=== PATIENT | female | born 1945 | race Caucasian/White ===

== ENCOUNTER 2016-12-19 21:50 | Emergency (ER) | payer MEDICARE, OTHER ==
[~2016-12-19] VITALS: Ht 160 cm; Wt 77.3 kg
[2016-12-19 21:56] VITALS: BP 153/94; RESP 18; O2SAT 97
[2016-12-19] MEDS ORDERED: VITA400C64 PO (22:06)
[2016-12-19] MEDS ORDERED: ASPI-973 PO (22:06)
[2016-12-19] MEDS ORDERED: ESOM20CA28 PO (22:06)
--- NOTE | 2016-12-19 22:17 | ED.REPORT ---
HPI-Facial Injury Date of Service Dec 19, 2016 ED Provider: Dami Membreno MD A 71 year old female who takes one 81 mg aspirin and vitamin E supplements daily presents to the ED due to epistaxis. She has been experiencing intermittent nose bleeds for seven days but has been able to stop them. This episode began at 21:00 tonight and has continued since. The pt denies trauma, and states that she had been getting out of bed when the bleeding began. The blood was running down the back of her throat when the bleeding began, though this has stopped at this point. The pt has not used any nasal sprays to attempt to stop the bleeding. The pt's home was recently refinished and she is highly allergic to the dust. She suspects that her epistaxis may be related to this event. Nursing Notes Stated Complaint: NOSE BLEED Chief Complaint: ENT & Mouth Nursing Notes Reviewed: Yes Allergies: Coded Allergies: Penicillins (Verified Allergy, Severe, swelling, 12/19/16) Uncoded Allergies: CORTISOME (Allergy, Severe, swelling, 12/19/16) Scheduled Aspirin (Aspirin) 81 Mg Tablet 81 MG PO DAILY Esomeprazole Magnesium (Nexium) 20 Mg Capsule.dr 20 MG PO DAILY Vitamin E Mixed (Vitamin E) 400 Unit Capsule 400 UNIT PO DAILY General Time Seen by Provider: 22:14 Chief Complaint Nose bleed Hx Obtained From: Patient Arrived By: Walk-in Onset Occurred: 1 - 4 hours ago Symptom Duration: Since onset Recent Healthcare: No recent doctor visit, No recent hospitalization Similar Sx Previous: No Past Medical History Past Medical History chronic back pain Denies: Diabetes mellitus, Hypertension Past Surgical History Reports: Appendectomy, Cholecystectomy, Hysterectomy Smoking History Unknown if Ever Smoker Social History Other Social History: Good social support, Ambulatory Status Independent Review of Systems Constitutional: Denies: Fever Ears / Nose / Throat: Reports: Nose bleeding Musculoskeletal: Denies: Back pain Skin: Denies Rash Complete sys rev & neg: except as marked. Respiratory: Denies: Non-productive cough Cardiovascular: Denies: Chest pain GI: Denies: Abdominal pain Physical Exam Initial Vital Signs Vital Signs (First) Date Time Temp Pulse Resp B/P Pulse Ox O2 Delivery O2 Flow Rate FiO2 12/19/16 21:56 36.8 78 18 153/94 97 Room Air Initial VS: Reviewed Head / Eyes: Atraumatic, Normocephalic, PERRL, EOMI ENT: Atraumatic, Airway patent, Mucous membranes moist scant blood on soft palate no hypopharyngeal blood seen Neck: Atraumatic, Supple, Full range of motion Neurologic: Oriented X3, Speech NL, No motor deficits, No sensory deficits General/Constitutional: Awake, Alert Respiratory / Chest: Atraumatic, No respiratory distress Cardiovascular: Heart rate NL Skin: Atraumatic, Color NL, No rash, Warm, Dry Abdomen: Atraumatic Back: Atraumatic, Full range of motion Upper Extremity / MS: Atraumatic, Full range of motion Lower Extremity / Pelvis / MS: Atraumatic, Full range of motion Psychiatric: Affect NL, Mood NL Re-Eval/Medical Decision Source of Hx: Old records Re-Evaluation/Progress : Time of Eval: 22:25 Patient Status: Condition improved Re-Evaluation/Progress Note: Pt rechecked, and her nose is packed. The plan for discharge is discussed. The pt understands and agrees with the plan. All questions are addressed at this time. Counseled Regarding: Diagnosis, Need for follow-up, When/why to return to ED Discharge & Departure Impression: Primary Impression: Epistaxis Disposition: Home Discharge Condition All VS Reviewed: Yes Condition: Stable Patient Instructions: Epistaxis (ED) Additional Instructions: Your bleeding has been controlled with oxymetazoline and an external clamp for pressure. If the bleeding resumes, spray 2 or 3 sprays of oxymetazoline in each nostril and then place the clamp for 15 minutes. If this is insufficient to control the bleeding, saturate a cotton ball and inserted in each nostril and then place the clamp again for another 15 minutes. If this is insufficient, return to the emergency department for more definitive care. After the bleeding is stopped for 12 hours or more, begin applying petroleum jelly inside the nostrils 2 or 3 times daily for a week or 2 to help the bleeding spot heal. Referrals: OTHER,PHYSICIAN (PCP) Scribe Attestation Portions of this note were transcribed by Shirley Calderon. I, Dr. Membreno personally performed the history, physical exam and medical decision-making; I reviewed and confirmed the accuracy of the information in the transcribed note. Signed by: Russ Carroll, 12/19/2016 and 23:18. Dami Membreno MD Dec 19, 2016 22:16 SHIRLEY CALDERON Dec 19, 2016 22:38
[2016-12-19 22:58] VITALS: BP_SYST 132; PULSE 69; RESP 16; O2SAT 95
== END 2016-12-19 22:59 | disposition home or self-care (01) ==
LOC: SED 21:50
DX: R04.0 Epistaxis (principal); Z87.898 Personal history of other specified conditions; Z79.82 Long term (current) use of aspirin; Z88.0 Allergy status to penicillin; Z88.8 Allergy status to other drugs, medicaments and biological substances